=== PATIENT | female | born 2000 | race Caucasian/White ===

== ENCOUNTER 2023-09-17 13:02 | Emergency (ER) | payer OTHER ==
[2023-09-17 15:50] LABS: Anion Gap 13 mmol/L (10-20); BUN (Urea Nitrogen) 13 mg/dL (7.0-18.7); Calc. Creatinine Clearance 0 mL/min (70-130); Calcium 9.3 mg/dL (7.8-10.44); Carbon Dioxide 25 mmol/L (22-29); Chloride 107 mmol/L (98-107); Estimated GFR 118; Glucose 89 mg/dL (70-105); Magnesium 1.8 mg/dL (1.6-2.6); Potassium 3.9 mmol/L (3.5-5.1); Sodium 141 mmol/L (136-145)
== END 2023-09-17 16:38 | disposition home or self-care (01) ==
LOC: CSHERS 13:02
DX: R20.2 Paresthesia of skin (principal)
CPT/HCPCS: 80048; 83735; 99284